=== PATIENT | female | born 1965 | race African-American/Black ===

== ENCOUNTER 2019-09-22 14:09 | Outpatient (CLI) | payer BC, SELFPAY ==
[2019-09-22 15:43] LABS: Blood Urea Nitrogen 10 mg/dL (7-17); Calcium 9.4 mg/dL (8.4-10.2); Carbon Dioxide 31 mmol/L (22-30); Chloride 103 mmol/L (98-107); Cholesterol 205 mg/dL (0-200); Estimated Glomerular Filt Rate > 60; Glucose 84 mg/dL (65-105); HDL Direct 69 mg/dL; Potassium 3.8 mmol/L (3.4-5.0); Sodium 138 mmol/L (137-145); Triglycerides 74 mg/dL (<150)
[2019-09-22 15:54] LABS: LDL Cholesterol Direct 97 mg/dL
== END 2019-09-22 14:10 | disposition home or self-care (01) ==
PROVIDERS: PCP Internal Medicine; Visit Provider Internal Medicine
DX: Z13.6 Encounter for screening for cardiovascular disorders (principal); Z13.220 Encounter for screening for lipoid disorders
CPT/HCPCS: 36415; 80048; 80061

== ENCOUNTER 2019-12-14 08:15 | Outpatient (CLI) | payer BC, SELFPAY ==
--- NOTE | ~2019-12-14 | MM_ITS ---
EXAMINATION: MM screening [facility] BI w elsie HISTORY: Screening TECHNIQUE: Craniocaudal and mediolateral oblique 3-D tomosynthesis images were obtained and synthetic 2-D images were generated. CAD analysis was submitted and interpreted. COMPARISON: Comparison to multiple prior studies sequentially, with oldest reviewed study dated 10/25. BREAST PARENCHYMAL COMPOSITION: The breasts are heterogeneously dense, which may obscure small masses . FINDINGS: There is no evidence of suspicious mass, calcification, or architectural distortion to sugg est malignancy in either breast. There has been no suspicious interval change. IMPRESSION: 1. No mammographic evidence of malignancy. 2. Recommend routine screening mammography in one year. BI-RADS Category 1: Negative Reviewed, dictated and finalized at location A.
== END 2019-12-14 08:16 | disposition home or self-care (01) ==
PROVIDERS: PCP Internal Medicine; Visit Provider Nurse Practitioner
DX: Z12.31 Encounter for screening mammogram for malignant neoplasm of breast (principal)
CPT/HCPCS: 77063; 77067

== ENCOUNTER 2020-04-13 11:21 | Outpatient (CLI) | payer BC, SELFPAY ==
[2020-04-13 11:58] LABS: Anion Gap 6 mmol/L (8-16); Blood Urea Nitrogen 12 mg/dL (7-17); Calcium 8.8 mg/dL (8.4-10.2); Carbon Dioxide 28 mmol/L (22-30); Chloride 107 mmol/L (98-107); Cholesterol 147 mg/dL (0-200); Estimated Glomerular Filt Rate > 60; Glucose 84 mg/dL (65-105); HDL Direct 58 mg/dL; Potassium 3.9 mmol/L (3.4-5.0); Sodium 141 mmol/L (137-145); Triglycerides 63 mg/dL (<150)
[2020-04-13 12:08] LABS: LDL Cholesterol Direct 63 mg/dL
== END 2020-04-13 11:22 | disposition home or self-care (01) ==
LOC: ANHLAB 11:22
PROVIDERS: PCP Internal Medicine; Visit Provider Nurse Practitioner
DX: Z13.6 Encounter for screening for cardiovascular disorders (principal); E78.5 Hyperlipidemia, unspecified
CPT/HCPCS: 36415; 80048; 80061

== ENCOUNTER 2020-04-23 09:36 | Outpatient (CLI) | payer BC, SELFPAY ==
[2020-04-23 10:41] LABS: Iron 88 ug/dL (37-170)
[2020-04-23 10:52] LABS: Percent Iron Saturation 33 % (20-50)
== END 2020-04-23 09:37 | disposition home or self-care (01) ==
PROVIDERS: PCP Internal Medicine; Visit Provider Internal Medicine
DX: G25.81 Restless legs syndrome (principal)
CPT/HCPCS: 36415; 82728; 83540; 83550

== ENCOUNTER 2020-12-17 09:46 | Outpatient (CLI) | payer BC, SELFPAY ==
--- NOTE | ~2020-12-17 | MM_ITS ---
EXAMINATION: MM screening [facility] BI w elsie HISTORY: Screening mammogram TECHNIQUE: Craniocaudal and mediolateral oblique 3-D tomosynthesis images were obtained and synthetic 2-D images were generated. CAD analysis was submitted and interpreted. COMPARISON: 12/14/2019, 12/11/2018, 12/05/2017 BREAST PARENCHYMAL COMPOSITION: There are scattered areas of fibroglandular density. FINDINGS: There is no evidence of suspicious mass, calcification, or architectural distortion to sugg est malignancy in either breast. There has been no suspicious interval change. IMPRESSION: 1. No mammographic evidence of malignancy. 2. Recommend routine screening mammography in one year. BI-RADS Category 1: Negative Reviewed, dictated and finalized at location A.
== END 2020-12-17 09:47 | disposition home or self-care (01) ==
LOC: ANHIMG 09:49
PROVIDERS: PCP Internal Medicine; Visit Provider Nurse Practitioner
DX: Z12.31 Encounter for screening mammogram for malignant neoplasm of breast (principal)
CPT/HCPCS: 77063; 77067

== ENCOUNTER 2021-05-18 12:09 | Outpatient (CLI) | payer BC, SELFPAY ==
[2021-05-18 13:32] LABS: Thyroid Stimulating Hormone 0.069 uIU/mL (0.465-4.680)
[2021-05-22 13:51] LABS: Red Blood Cell Folate 567 ng/mL RBC (>280)
== END 2021-05-18 12:10 | disposition home or self-care (01) ==
PROVIDERS: PCP Internal Medicine; Visit Provider Internal Medicine
DX: R20.2 Paresthesia of skin (principal)
CPT/HCPCS: 36415; 82607; 82747; 84443

== ENCOUNTER 2021-05-22 17:54 | Outpatient (CLI) | payer BC, SELFPAY ==
[2021-05-22 18:58] LABS: Thyroid Stimulating Hormone 0.772 uIU/mL (0.465-4.680); Total Triiodothyronine (T3) 1.19 NG/ML (0.97-1.69)
[2021-05-22 19:08] LABS: Free T4 Free Thyroxine 0.84 ng/mL (0.78-2.19)
== END 2021-05-22 17:55 | disposition home or self-care (01) ==
LOC: ANHLAB 17:55
PROVIDERS: PCP Internal Medicine; Visit Provider Internal Medicine
DX: R79.89 Other specified abnormal findings of blood chemistry (principal)
CPT/HCPCS: 36415; 84439; 84443; 84480

== ENCOUNTER 2021-06-03 09:39 | Outpatient (CLI) | payer BC, SELFPAY ==
--- NOTE | ~2021-06-03 | US_ITS ---
EXAMINATION: US thyroid DATE: 06/03/2021 10:09 INDICATION: Nontoxic single thyroid nodule. TECHNIQUE: Multiple ultrasound images of the thyroid were obtained. COMPARISON: None. FINDINGS: The right thyroid lobe measures 4.3 x 1.2 x 1.4 cm. The left thyroid lobe measures 4.0 x 0.9 x 1.5 c m. In the right thyroid lobe, there is a 7 mm solid, hypoechoic, [id number] nodule with ill-def ined margin without echogenic foci (TI-RADS TR4). IMPRESSION: 1. Small thyroid nodule, likely not clinically significant. No follow-up is needed. Reviewed, dictated and finalized at location A. DETAILER IMPRESSION: 1. Small thyroid nodule, likely not clinically significant. No follow-up is nee ded.
--- NOTE | ~2021-06-03 | XR_ITS ---
EXAMINATION: XR UGI w barium swallow DATE: 06/03/2021 10:21 INDICATION: Dysphagia with feeling of a lump in her throat. TECHNIQUE: The patient drank thick barium, gas-producing crystals, and thin barium. Fluoroscopy of th e esophagus, stomach, and proximal small bowel was performed. Fluoroscopy exposure time was 0.5 minut es. The total number of images was 239. Total dose-area product was 0.825 Gy-cm^2. COMPARISON: None. FINDINGS: There is no mass or stricture of the esophagus. Esophageal motility is normal. There is no hiatal hernia. There was no gastroesophageal reflux with provocative maneuvers. The stomach and proxi mal small bowel show normal folding patterns. IMPRESSION: 1. Normal upper gastrointestinal series and esophagram. Reviewed, dictated and finalized at location A. BUILDER
== END 2021-06-03 09:40 | disposition home or self-care (01) ==
LOC: ANHIMG 09:40
PROVIDERS: PCP Internal Medicine; Visit Provider Internal Medicine
DX: E04.1 Nontoxic single thyroid nodule (principal); R91.8 Other nonspecific abnormal finding of lung field
CPT/HCPCS: 74240; 76536

== ENCOUNTER 2022-01-27 08:25 | Outpatient (CLI) | payer OTHER, SELFPAY ==
--- NOTE | ~2022-01-27 | MM_ITS ---
EXAMINATION: MM screening jed BI w elsie HISTORY: Screening mammogram TECHNIQUE: Craniocaudal and mediolateral oblique 3-D tomosynthesis images were obtained and synthetic 2-D images were generated. CAD analysis was submitted and interpreted. COMPARISON: No prior mammogram is available for comparison at this institution. BREAST PARENCHYMAL COMPOSITION: There are scattered areas of fibroglandular density. FINDINGS: There is no evidence of suspicious mass, calcification, or architectural distortion to sugg est malignancy in either breast. There has been no suspicious interval change. IMPRESSION: 1. No mammographic evidence of malignancy. 2. Recommend routine screening mammography in one year. BI-RADS Category 1: Negative Reviewed, dictated and finalized at location A.
== END 2022-01-27 08:26 | disposition home or self-care (01) ==
LOC: ANHIMG 08:28
PROVIDERS: PCP Internal Medicine; Visit Provider Internal Medicine
DX: Z12.31 Encounter for screening mammogram for malignant neoplasm of breast (principal)
CPT/HCPCS: 77063; 77067

== ENCOUNTER 2022-11-10 11:07 | Outpatient (CLI) | payer OTHER, SELFPAY ==
[2022-11-10 12:25] LABS: Alanine Aminotransferase 20 U/L (6-35); Albumin Level 3.9 g/dL (3.5-5.1); Alkaline Phosphatase 49 U/L (38-126); Anion Gap 3 mmol/L (8-16); Aspartate Amino Transferase 29 U/L (14-36); Bilirubin,Total 0.6 mg/dL (0.2-1.3); Blood Urea Nitrogen 13 mg/dL (7-17); Calcium 8.6 mg/dL (8.4-10.2); Carbon Dioxide 28 mmol/L (22-30); Chloride 104 mmol/L (98-107); Cholesterol 180 mg/dL (0-200); Estimated Glomerular Filt Rate > 60; Glucose 85 mg/dL (65-110); HDL Direct 61 mg/dL; Potassium 3.9 mmol/L (3.4-5.0); Sodium 135 mmol/L (137-145); Triglycerides 83 mg/dL (<150)
[2022-11-10 12:35] LABS: LDL Cholesterol Direct 80 mg/dL
[2022-11-10 12:39] LABS: Basophils Absolute Auto 0.1 K/mm3 (0.0-0.1); Eosinophils Absolute Auto 0.1 K/mm3 (0-0.3); Eosinophils Percent Auto 2.3 % (0-4.4); Hematocrit 37.7 % (37.0-47.0); Hemoglobin 12.2 g/dL (12.0-15.0); Immature Granulocyte Absolute 0.01 K/mm3 (0.00-0.031); Immature Granulocyte Percent A 0.2 % (0-0.5); Lymphocytes Absolute Auto 1.89 K/mm3 (0.9-3.2); Lymphocytes Percent Auto 36.5 % (18.3-44.2); Mean Corpuscular HGB Conc 32.4 g/dl (32-36); Mean Corpuscular Hemoglobin 26.2 pg (26-34); Mean Corpuscular Volume 81.1 fl (80-100); Mean Platelet Volume 11.5 fl (7.4-10.4); Monocytes Absolute Auto 0.5 K/mm3 (0.1-0.6); Monocytes Percent Auto 9.3 % (2.6-8.5); Neutrophils Absolute Auto 2.6 K/mm3 (1.3-6.7); Neutrophils Percent Auto 50.7 % (45.5-73.1); Platelet Count Result 224 k/mm3 (150-375); Red Blood Count 4.65 M/mm3 (4.2-5.4); Red Cell Distribution Width 14.2 % (11.5-14.5); White Blood Count 5.2 K/mm3 (4.5-10.0)
[2022-11-10 12:52] LABS: Thyroid Stimulating Hormone 0.272 uIU/mL (0.465-4.680)
== END 2022-11-10 11:08 | disposition home or self-care (01) ==
LOC: ANHLAB 11:09
PROVIDERS: PCP Family Medicine; Visit Provider Family Medicine
DX: Z00.00 Encounter for general adult medical examination without abnormal findings (principal); F41.9 Anxiety disorder, unspecified; G25.81 Restless legs syndrome; G43.909 Migraine, unspecified, not intractable, without status migrainosus; K21.9 Gastro-esophageal reflux disease without esophagitis; R20.2 Paresthesia of skin; R79.89 Other specified abnormal findings of blood chemistry
CPT/HCPCS: 36415; 80053; 80061; 84443; 85025

== ENCOUNTER 2023-01-30 13:41 | Outpatient (CLI) | payer OTHER, SELFPAY ==
--- NOTE | ~2023-01-30 | MM_ITS ---
EXAMINATION: MM screening [facility] BI w elsie HISTORY: Screening mammogram TECHNIQUE: Craniocaudal and mediolateral oblique 3-D tomosynthesis images were obtained and synthetic 2-D images were generated. CAD analysis was submitted and interpreted. COMPARISON: 01/27/2022, 12/17/2020, 12/14/2019 bilateral screening mammogram examinations BREAST PARENCHYMAL COMPOSITION: There are scattered areas of fibroglandular density. FINDINGS: There is no evidence of suspicious mass, calcification, or architectural distortion to sugg est malignancy in either breast. There has been no suspicious interval change. IMPRESSION: 1. No mammographic evidence of malignancy. 2. Recommend routine screening mammography in one year. BI-RADS Category 1: Negative Reviewed, dictated and finalized at location A.
== END 2023-01-30 13:42 | disposition home or self-care (01) ==
LOC: CHSIMG 13:42
PROVIDERS: PCP Family Medicine; Visit Provider Family Medicine
DX: Z12.31 Encounter for screening mammogram for malignant neoplasm of breast (principal)
CPT/HCPCS: 77063; 77067

== ENCOUNTER 2023-05-21 15:25 | Outpatient (CLI) | payer OTHER, SELFPAY ==
[2023-05-21 16:31] LABS: Alanine Aminotransferase 17 U/L (6-35); Albumin Level 4.1 g/dL (3.5-5.1); Alkaline Phosphatase 75 U/L (38-126); Anion Gap 5 mmol/L (8-16); Aspartate Amino Transferase 25 U/L (14-36); Bilirubin,Total 0.4 mg/dL (0.2-1.3); Blood Urea Nitrogen 13 mg/dL (7-17); Calcium 8.7 mg/dL (8.4-10.2); Carbon Dioxide 27 mmol/L (22-30); Chloride 108 mmol/L (98-107); Cholesterol 167 mg/dL (0-200); Estimated Glomerular Filt Rate > 60; Glucose 84 mg/dL (65-110); HDL Direct 62 mg/dL; Sodium 140 mmol/L (137-145); Triglycerides 134 mg/dL (<150)
[2023-05-21 16:42] LABS: LDL Cholesterol Direct 79 mg/dL
[2023-05-21 17:02] LABS: Thyroid Stimulating Hormone 0.146 uIU/mL (0.465-4.680)
[2023-05-21 19:32] LABS: Free T4 Free Thyroxine 0.95 ng/mL (0.78-2.19)
== END 2023-05-21 15:26 | disposition home or self-care (01) ==
LOC: ANHLAB 15:26
PROVIDERS: PCP Family Medicine; Visit Provider Nurse Practitioner Family
DX: E05.90 Thyrotoxicosis, unspecified without thyrotoxic crisis or storm (principal); Z13.228 Encounter for screening for other metabolic disorders; Z13.220 Encounter for screening for lipoid disorders
CPT/HCPCS: 36415; 80053; 80061; 84439; 84443

== ENCOUNTER 2023-06-11 16:16 | Outpatient (CLI) | payer OTHER, SELFPAY ==
[2023-06-11 17:53] LABS: Free T4 Free Thyroxine 1.12 ng/mL (0.78-2.19)
== END 2023-06-11 16:17 | disposition home or self-care (01) ==
LOC: ANHLAB 16:18
PROVIDERS: PCP Family Medicine; Visit Provider Nurse Practitioner
DX: R79.89 Other specified abnormal findings of blood chemistry (principal)
CPT/HCPCS: 36415; 84439

== ENCOUNTER 2023-06-15 12:47 | Outpatient (CLI) | payer OTHER, SELFPAY | END 2023-06-15 12:48 | disposition home or self-care (01) | LOC: ANHLAB 12:48 | PROVIDERS: PCP Family Medicine; Visit Provider Nurse Practitioner | DX: R79.89 Other specified abnormal findings of blood chemistry (principal) | CPT/HCPCS: 36415; 84443 ==

== ENCOUNTER 2024-03-02 09:05 | Outpatient (CLI) | payer OTHER, SELFPAY ==
--- NOTE | ~2024-03-02 | MM_ITS ---
EXAMINATION: MM screening [facility] BI w elsie HISTORY: Screening mammogram TECHNIQUE: Craniocaudal and mediolateral oblique 3-D tomosynthesis images were obtained and synthetic 2-D images were generated. CAD analysis was submitted and interpreted. COMPARISON: 01/30/2023, 01/27/2022, 12/17/2020 BREAST PARENCHYMAL COMPOSITION:Not Dense. There are scattered areas of fibroglandular density. FINDINGS: No suspicious mass, calcification, or architectural distortion are identified in either angelia ast to suggest malignancy. There has been no suspicious interval change. IMPRESSION: No mammographic evidence of malignancy. Recommend routine screening mammography in one year. BI-RADS Category 1: Negative Reviewed, dictated and finalized at location .
== END 2024-03-02 09:06 | disposition home or self-care (01) ==
PROVIDERS: PCP Family Medicine; Visit Provider Nurse Practitioner
DX: Z12.31 Encounter for screening mammogram for malignant neoplasm of breast (principal)
CPT/HCPCS: 77063; 77067

== ENCOUNTER 2024-07-26 13:48 | Outpatient (CLI) | payer BC, SELFPAY ==
[2024-07-26 14:54] LABS: Alanine Aminotransferase 21 U/L (6-35); Albumin Level 4.3 g/dL (3.5-5.1); Alkaline Phosphatase 74 U/L (38-126); Anion Gap 7 mmol/L (4-12); Aspartate Amino Transferase 25 U/L (14-36); Bilirubin,Total 0.4 mg/dL (0.2-1.3); Blood Urea Nitrogen 7 mg/dL (7-17); CRP < 0.5 mg/dL (<1.0); Calcium 9.3 mg/dL (8.4-10.2); Carbon Dioxide 28 mmol/L (22-30); Chloride 105 mmol/L (98-107); Cholesterol 161 mg/dL (0-200); Estimated Glomerular Filt Rate > 60; Glucose 92 mg/dL (65-110); HDL Direct 55 mg/dL; Sodium 140 mmol/L (137-145); Triglycerides 96 mg/dL (<150)
[2024-07-26 15:52] LABS: Erythrocyte Sedimentation Rate 1 mm/hr (0-20)
[2024-07-26 15:58] LABS: Rheumatoid Factor < 12.0 IU/ML (<12)
[2024-07-26 16:04] LABS: LDL Cholesterol Direct 73 mg/dL
--- OUTSIDE RECORDS SUMMARY | 2024-07-26 16:07 | XMS_ITS | Data Portability ---
Author Organization [facility] , [facility] Address [address] [place] [address] Assessment No assessment recorded. Plan of Treatment Reminders Order Date Submit Date Provider Last Modified By Organization Details Last Modified Time Details Appointments None recorded. Lab None recorded. Referral None recorded. Procedures None recorded. Surgeries None recorded. Imaging None recorded. Medication Orders estradiol 0.025 mg/24 hr semiweekly transdermal patch 2024 025 [id number], [address], [place], [phone], 5 00:15:40 Climara 0.025 mg/24 hr transdermal patch 2022 023 [email or web address] [id number], [address], [place], [phone], 5 12:54:32 estradiol 1 mg tablet 2021 022 [email or web address] [facility] #[id number], [address], [place], [id number], 3 13:01:41 Patient TargetsNo targets recorded. Patient Instructions Encounter Date Encounter Id Patient Instructions Last Modified By Organization Details Last Modified Time 10/24/2022 [id number] Patient Health Questionnaire-9* [email or web address] Not available 10/27/2022 12:42:04 abuse/domestic violence education Not available 10/24/2022 13:01:15 eating healthy foods: care instructions Not available 10/24/2022 13:01:15 general health care education Not available 10/24/2022 13:01:15 weight managemen t education Not available 10/24/2022 13:01:15 Reason for Referral None Reported. Problems Name Problem SNOMED Code Status Onset Date Resolution Date Notes Provider Name and Address Organization Details Recorded Time Sampling of vagina for Papanicol aou smear Active 2020 Encounter for gynecologi cindy examinatio n (general) (routine) without abnormal findings; Progress: Stable Added By: Silva Hernandez Add to Current Problems: YES ProblemSta tus: Current Not Available [facility] 21:03:00 Menopause present [id number] Active 2020 Menopausal and female climacteri c states; Progress: Stable Added By: Nicolle Brown Add to Current Problems: YES ProblemSta tus: Current Not Available [facility] 19:57:36 Problem Notes None recorded. Procedures Surgical History Date Name Laterality Status Provider Name and Address Organization Details Recorded Time 03/18/20 24 Most Recent Mammogram completed Kinza Harden [employer] [facility] 06/10/2024 16:41:17 05/04/19 18 Date of Last Colonoscopy completed Alesia Simpson [facility] 01/11/2024 17:22:50 10/03/19 11 Date of Last Pap Smear completed SANDRA MENDEZ NP [address] [facility], [place], [address], [employer] [facility] 01/11/2024 18:01:28 hysterectomy completed Sandhya Edwardtrusiak [facility] 08/12/2021 08:49:35 oophorectomy completed Sandhya [facility] 08/12/2021 08:49:49 Vaginal hysterectomy completed Silvia Patton [facility] 10/24/2022 12:32:52 Diagnostic colonoscopy completed Kinza Harden [employer] [facility] 06/10/2024 16:41:42 Imaging Results None recorded. Procedure Notes None recorded. Medical Equipment None Reported. Allergies Allergen ID Allergen Name Allergen Category Reaction Reaction Severity Criticality Documentation Date Start Date Code Code System Note Provider Name and Address Organization Details Recorded Time 068306 amoxicill in medicatio n Not available Not available Not available 10/24/2022 723 RxNorm Not Available Not Available Not Available Medications Name Sig Start Date Stop Date Status Note LastModified by Organization Details LastModified Time amoxicill in 500 mg capsule 10/24 completed Not Available Not Available Not Available trazodone 50 mg tablet TAKE 1 TABLET BY MOUTH EVERY DAY AT BEDTIME NEEDED FOR INSOMNIA active Not Available Not Available No t Available estradiol 0.025 mg/24 hr weekly transderm al patch APPLY 1 PATCH TOPICALL Y TO THE SKIN EVERY WEEK 05/19 completed Not Available Not Available Not Available estradiol 1 mg tablet TAKE 1 TABLET(1 MG) BY MOUTH EVERY DAY 10/24 completed Not Available Not Available Not Available omeprazol e 20 mg capsule,d elayed release TAKE 1 CAPSULE BY MOUTH DAILY active Not Available Not Available No t Available estradiol 0.025 mg/24 hr semiweekl y transderm al patch Apply 1 patch twice a week by transder mal route for 90 days. 2024 active Not Available Not Available Not Avai lable sumatript an 08/12 completed SUMAtrip strong RxNorm: 00124 Allow Substitu tion: False Refill Denied: No Refill DateOccu rred: 10/17/19 Edited by: Silva Justice ) on 10/17/19 21 Stopped by: Silva Justice ) on Not Available Not Available Not Available estradiol 08/12 completed estradio L RxNorm: 3098048 Allow Substitu tion: False Refill Denied: No Refill DateOccu rred: 10/17/19 21 Edited by: dionte carmona(Nicolle Kenney ) on 10/17/19 Stopped by: dionte cramona(Nicolle Kenney ) on Not Available Not Available Not Available biotin active Not Available Not Availa ble Not Available Vitamin D active Not Available Not Madalyn ilable Not Available B12 active Not Available Not Availa ble Not Available Probiotic active Not Available Not Madalyn ilable Not Available Vitals Date Recorded Body height Body mass index (BMI) Body weight Body temperature Systolic blood pressure Diastolic blood pressure Provider Name and Address Organization Details Last Updated DateTime 2 165.1 cm 24.8 kg/m2 31673.2 6 g 97.3 [degF] 110 mm[Hg] 68 mm[Hg] Jennifertom ArreguinAnibal [facility] 2 17:10:47 Date Recorded Body height Body mass index (BMI) Body weight Body temperature Systolic blood pressure Diastolic blood pressure Provider Name and Address Organization Details Last Updated DateTime 3 165.1 cm 23.7 kg/m2 34618.8 4 g 97 [degF] 112 mm[Hg] 80 mm[Hg] Silvia Patton [facility] 3 12:37:52 Date Recorded Body height Body mass index (BMI) Body weight Body temperature Systolic blood pressure Diastolic blood pressure Provider Name and Address Organization Details Last Updated DateTime 4 165.1 cm 23.7 kg/m2 01784.8 4 g 97.3 [degF] 130 mm[Hg] 82 mm[Hg] Alesia Simpson [facility] 4 17:27:10 Date Recorded Body height Body mass index (BMI) Body weight Systolic blood pressure Diastolic blood pressure Provider Name and Address Organization Details Last Updated DateTime 06/10/2024 165.1 cm 25.5 kg/m2 14700.07 g 130 mm[Hg] 88 mm[Hg] Kinza Correaa [facility] 5 16:44:39 Social History Question Answer Notes LastModified by Organizat ion Details LastModified Time Tobacco Smoking Status Never Smoker Jennifer Barnett [facility] 08/12/2021 17:07:44 What Is Your Level Of Alcohol Consumption? None Information not available 08/12/2021 Are You Blind Or Do You Have Difficulty Seeing? No Information not available 08/12/2021 Are You Currently Employed? Yes [email or web address] Information not available 01/11/2024 Are You Deaf Or Do You Have Serious Difficulty Hearing? No Information not available 08/12/2021 What Type Of Diet Are You Following? REGULAR Information not available 08/12/2021 Do You Or Have You Ever Used E-cigarettes Or Vape? Never Used Electronic Cigarettes [email or web address] Information not available 10/24/2022 How Many Children Do You Have? 2 Information not available 08/12/2021 Are There Any Occupational Health Risks Where You Work? No [email or web address] Information not available 01/11/2024 What Is Your Relationship Status? Single Information not available 08/12/2021 Are You Sexually Active? No [email or web address] Information not available 01/11/2024 Do You Use Any Illicit Or Recreational Drugs? No Information not available 08/12/2021 Do You Or Have You Ever Used Any Other Forms Of Tobacco Or Nicotine? No Information not available 08/12/2021 Sex: Unknown Functional Status Question Answer Note LastModified by Organizat ion Details LastModified Time What is your exercise level? Occasional Information not available 06/10/2024 Mental Status None recorded. Family History Relationship Description Onset Age of this Age Resolved Age Notes LastModified by Organization Details LastModified Time Maternal Grandmother Malignant tumor of lung [email or web address] Not available 2024 16:36:38 Maternal Grandmother Hypertensive disorder Not available 2022 12:32:37 Unspecified Relation Heart disease Not available 2022 12:32:37 Paternal Grandmother Hypertensive disorder [email or web address] Not available 2022 12:32:37 Paternal Grandmother Malignant tumor of lung [email or web address] Not available 2024 16:36:38 Mother Hypercholest erolemia [email or web address] Not available 2022 12:32:37 Mother Hypertensive disorder [email or web address] Not available 2022 12:32:37 Mother Hypothyroidi sm [email or web address] Not available 2022 12:32:37 Mother Uterine leiomyoma [email or web address] Not available 2022 12:32:37 Father Hypercholest erolemia [email or web address] Not available 2022 12:32:37 Father Hypertensive disorder [email or web address] Not available 2022 12:32:37 Father Heart disease [email or web address] Not available 2022 12:32:37 Medical History Condition Response Other Cancer N High Blood Pressure N Colon Cancer N Cytomegalovirus N Hyperthyroidism N Herpes (HSV) N Breast Cancer N Blood Transfusion N MRSA N Lung Cancer N Hypothyroidism N Depression N Incontinence N Panic Attacks N Neurological Disorder N Deep Vein Thrombosis N Anxiety Disorder N Autoimmune disease N Arthritis N Tuberculosis/Positive PPD N Shingles N Polycystic Ovarian Syndrome N Infertility N Cervical Cancer N Chlamydia N Hematuria N Stroke N Varicosities N Crohn's Disease N Seasonal allergies N Alzheimer's/Dementia N COPD/Emphysema N HPV/Genital Warts N Endometriosis N IBS (Irritable Bowel Syndrome) N History of Abnormal Pap N High Cholesterol N Liver Disease N Kidney Infection N Fibromyalgia N Ulcer N Kidney Disease N HIV N Gallbladder disease N Sickle Cell Disease/Trait N Von Willebrand disease N ADD/ADHD N Eating Disorder N Anemia N Diabetes Mellitus (non-insulin dependent ) N Ovarian Problems N Multiple Sclerosis N Gonorrhea N Frequent Urinary Tract infections N Osteopenia N Headaches/migraines Y GERD (reflux) Y Ovarian Cancer N Diabetes (insulin dependent) N Seizures/Epilepsy N Breast Problems N Fibroids N Heart Attack N Asthma N Lupus N Endometrial Cancer N Rubella N Blood Clotting Disorder N Bipolar Disorder N Diabetes Mellitus (during ) N Ulcerative Colitis N Hepatitis N Heart Disease N Pulmonary Embolism N RPR N Chicken Pox N Osteoporosis N Gynecological History Statement/Question Response Date of Last Colonoscopy 05/04/2017 Date of LMP Date of Last Pap Smear 10/02/2010 Most Recent Mammogram 03/18/2024 Current Control Method Hysterectom y Age at Menarche 14 Obstetrics History GPAL:G 2 P 2 0 0 2 Type Value Full Term 2 Living 2 Total 2 Past Encounters Encounter ID Performer Location Encounter Start Date Encounter Closed Date Diagnosis/Indication Diagnosis SNOMED-CT Code Diagnosis ICD10 Code Diagnosis Note [id number] Armani Stacy, DO [facility] [address] [place] [address] 08/12/2021 16:44:04 08/13/2021 10:41:58 Menopausal symptom 63147279 E89.41 estrad [id number] RAD JULIAN, DO [facility] [address] [place] [address] 10/24/2022 12:11:32 10/24/2022 17:25:05 Gynecologic examination 29729058 Z01.419 57 y.o. here for annual exam.- Pap not indicated due to h/o hysterecto my- Routine labs done with PCP- Mammo last year WNL, scheduled for December 2022- Colonoscop y done in 2018 WNL, can continue q10 years screens- DEXA at age 67- Depression screen NEG- RTO for annual or PRN Depression screening 171 397418 Z13.31 Menopausal symptom 68185 002 N95.1 switched from oral Estradiol to patch [id number] SANDRA MENDEZSALLY [facility] [address] [place] [address] 01/11/2024 16:58:17 01/12/2024 15:13:08 Menopause finding 298279225 N95.1 -Reviewed vast array of perimenopa usal symptoms including but not limited to vasomotor symptoms, irregular cycles, hair loss, weight gain, mood swings, brain fog, increase in depression symptoms, etc.-Revie wed treatment options including non-hormon al and hormonal options.-D iscussed vaginal dryness and trying natural lubricants , increasing foreplay to help, if no change can use estrogen cream. Patient identified triggers for anxiety and impact of anxiety and anxious thinking on functionin g. Discussed strategies to regulate symptoms and compliance with treatment. Vaginal dryness 40439015 N95.1 Discussed vaginal estrogen, DHEA supplement ation. Will plan to use lubricant (rec coconut oil, astroglide or slippery stuff). Vaginal Dryness handout given to patient. Depression screening 171 043917 Z13.31 [id number] SANDRAMIREYA MENDEZ NP [facility] [address] [place] [address] 06/10/2024 16:34:03 06/13/2024 15:28:38 Menopausal symptom 76268514 N95.1 -Reviewed vast array of perimenopa usal symptoms including but not limited to vasomotor symptoms, irregular cycles, hair loss, weight gain, mood swings, brain fog, increase in depression symptoms, etc.-Revie wed treatment options including non-hormon al and hormonal options.-D iscussed vaginal dryness and trying natural lubricants , increasing foreplay to help, if no change can use estrogen cream. Patient identified triggers for anxiety and impact of anxiety and anxious thinking on functionin g. Discussed strategies to regulate symptoms and compliance with treatment. Breast tenderness 467219 07 N64.4 Patient with reported tenderness in bilateral axilla area. patient reports that she was wearing an underwire bra for awhile as well as very active. No nodules were palpated and patient reports that the tenderness improved once she changed to wire free bras.Pt educated on breast cancer screening guidelines , and discussed recommenda tion for scheduling imaging at hospital of her choice. Reviewed recommenda tion to have imaging done at same facility if possible as previous screenings . Pt states understand ing of POC. Health Concerns Section Related Observation LastModified by Organization Detai ls LastModified Time None Recorded Concern Status LastModified by Organization Details LastModified Time None Recorded Advance Directives Directive None Recorded Payers Encounter Date Sequence Insurance Name Policy Number Policy Delgado Covered Member ID Delgado Member ID Guarantor Name 08/12/2021 1 [employer] [id number] Marcin B Javier [id number] Marcin Javier 10/24/2022 1 [employer] [id number] Marcin B Javier [id number] Marcin Javier 01/11/2024 1 [employer] [id number] Marcin B Javier [id number] Marcin Javier 06/10/2024 1 [place] [id number] Marcin Javier [id number] Marcin Javier Notes Date Note Type Note Provider Name and Address Organization Details Recorded Time 08/12/2021 text/html Pt is here to f/ u on estradiol Nicolle prescribed to her in October of 2020 for hot flashes. Pt says she is satisfied with the medication. Armani Stacy, [address] [place] [address], [phone], [facility] 08/12/2021 17:25:24 10/24/2022 text/html Annual GYNReport ed bypatient.Menstrua l cycle:postmenopaus al Urinary symptoms:No hematuria; No incontinence Vulva:No genital lesion Vagina:Normal vaginal discharge Breast:No breast pain; No breast lump; No nipple discharge Sexual complaints:No sexual complaints; No pain during intercourse; Normal libido Menopausal Symptoms:Normal vaginal lubrication;Hot flashes Psychological symptoms:No depression; No anxiety; No PMDD RAD JULIAN, [facility] [place], [address], [facility] 10/24/2022 13:02:15 01/11/2024 text/html Annual GYNReport ed bypatient.Menstrua l cycle:Normal menses Urinary symptoms:No hematuria; No incontinence Vulva:No genital lesion Vagina:Normal vaginal discharge Breast:No breast pain; No breast lump; No nipple discharge Sexual complaints:No sexual complaints; No pain during intercourse; Normal libido Menopausal Symptoms:No menopausal symptoms; Normal vaginal lubrication Psychological symptoms:No depression; No anxiety; No PMDD Marcin is here today She wants to discuss her anxiety level. She'd like to discuss if it could have something to do with the menopause. She has no other concerns at this time. SANDRA MENDEZ NP [address] [facility], [place], [address], [facility] 01/11/2024 18:05:52 06/10/2024 text/html Marcin is a 59 year old woman. Pt is here for medication refill. Pt stated that she needs more of the transdermal patches. SANDRA MENDEZ NP [address] [place], [address], [facility] 06/10/2024 17:09:10 OBGyn Episode Ob Episode Information Episode Created Date Number of Fetuses Patient Bloodtype Patient rh Status Prepregnancy Weight lbs Domestic Partner Domestic Partner Phone Father Name Front Office Developer Status 10/25/19 23 1 CLOSED Fetus Data First Name Last Name Admitted to NICU Weight (g) Sex Living Outcome Pediatric Complications Fetus ID Race Codes Race Delivery Type 3401.94 M Full Term [id number] Tashi Calculation Initial Tashi Date Initial Exam Date Initial Exam Provider Initial Ultrasound Date Last Menstrual Period Date Ultra Sound Weeks Gestation 0 Eighteen To Twenty Week Tashi Update Ultra Sound Date Fundal Height At Umbil Quickening Date Ultra Sound Latest Weeks Gestation Final Tashi Confirmed By Final Tashi Confirmed Date Final Tashi Date Ultra Sound Latest Days Gestation 0 0 Menstrual History Last Menstrual Date Menses Monthly On Bcp Conception Prior Menses Frequency Hcg Plus Date Menarche Onset Age Delivery Information Delivery Date Delivery Type Labor Anesthesia Weeks Gestation Incision Type Labor Labor Length Hrs Delivered By Post Complications Tubal Sterilization Discharge Date Comments 5 [facility] idural 40 Discharge Information Feeding Method Contraceptive Method Maternal HG B and HCT Levels Ob Episode Information Episode Created Date Number of Fetuses Patient Bloodtype Patient rh Status Prepregnancy Weight lbs Domestic Partner Domestic Partner Phone Father Name Front Office Developer Status 10/25/19 23 1 CLOSED Fetus Data First Name Last Name Admitted to NICU Weight (g) Sex Living Outcome Pediatric Complications Fetus ID Race Codes Race Delivery Type 3572.03 7 M Full Term [id number] Tashi Calculation Initial Tashi Date Initial Exam Date Initial Exam Provider Initial Ultrasound Date Last Menstrual Period Date Ultra Sound Weeks Gestation 0 Eighteen To Twenty Week Tashi Update Ultra Sound Date Fundal Height At Umbil Quickening Date Ultra Sound Latest Weeks Gestation Final Tashi Confirmed By Final Tashi Confirmed Date Final Tashi Date Ultra Sound Latest Days Gestation 0 0 Menstrual History Last Menstrual Date Menses Monthly On Bcp Conception Prior Menses Frequency Hcg Plus Date Menarche Onset Age Delivery Information Delivery Date Delivery Type Labor Anesthesia Weeks Gestation Incision Type Labor Labor Length Hrs Delivered By Post Complications Tubal Sterilization Discharge Date Comments 8 [facility] idural 40 false Discharge Information Feeding Method Contraceptive Method Maternal HG B and HCT Levels
--- OUTSIDE RECORDS SUMMARY | 2024-07-26 16:07 | XMS_ITS | Clinical Summary ---
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 Gender Identity Not on file Sexual Orientation Not on file Plan of Treatment Health Maintenance Due Date Last Done Comments Hepatitis C Virus (HCV) Screening 1967 TdaP Immunization 1967 Hepatitis B Immunization (1 of 3 - 19+ 3-dose series) 1986 Pap Smear 1988 Cervical Cancer Screening (CCS) 1997 HPV/Cotest 1997 Colonoscopy 2012 Colorectal Cancer Screening 2012 Cologuard 2017 Immunochemical Fecal Occult Blood 2017 Mammogram 2017 Pneumococcal Immunization (5 0+ years) (1 of 1 - PCV) 2017 Zoster Immunization (1 of 2) 2017 Influenza Immunization (#1) 2024 SARS-COV-2 Immunization ( season) 2024 Respiratory Syncytial Virus (RSV) Immunization (Adult) (1 - 1-dose 75+ series) 2042 Meningococcal Immunization (ACWY) Aged Out No longer eligible based on patient's age to complete this topic Pneumococcal Immunization Combined Aged Out No longer eligible based on patient's age to complete this topic Rotavirus Immunization Aged Out No lo nger eligible based on patient's age to complete this topic
--- OUTSIDE RECORDS SUMMARY | 2024-07-26 16:07 | XMS_ITS | Data Portability ---
Author Organization [facility], [employer] Address [address] [place] [address] Assessment No assessment recorded. Plan of Treatment Reminders Order Date Submit Date Provider Last Modified By Organization Details Last Modified Time Details Appointments None recorded. Lab BMP, serum or plasma 2018 019 [email or web address] Not available 9 08:36:00 fecal occult blood, immunoassa y, stool 2018 019 [email or web address] Not available 9 15:58:22 Referral None recorded. Procedures None recorded. Surgeries None recorded. [facility] [address], [place], [address], 9 11:57:03 XR, chest, 2 view 2018 019 lcallison [facility]), [address], [address], [place], [address], 9 08:36:07 Medication Orders None recorded. Patient TargetsNo targets recorded. Patient Instructions Encounter Date Encounter Id Patient Instructions Last Modified By Organization Details Last Modified Time 06/24/2018 [id number] elevated blood pressure: care instructions Not available 06/24/2018 15:55:08 spirometry testing* LATONIA Not available 06/24/2018 16:13:43 Reason for Referral None Reported. Results Created Date Observation Date Name Description Value Unit Range Abnormal Flag Note LastModifiedBy Organization Detail LastModifiedTime 06/25/19 19 06/25/2018 elect rocar diogr am Rate & Rhythm Not Available [facility], [facility] [address], [place], [address], 06/24/2018 15:44:22 06/25/19 19 06/25/2018 elect rocar diogr am QRS Not Available [facility], [facility] [address], [place], [address], 06/24/2018 15:44:22 06/25/19 19 06/25/2018 elect rocar diogr am NV Interval Not Available [facility], [facility] [address], [place], [address], 06/24/2018 15:44:22 06/25/19 19 06/25/2018 elect rocar diogr am QRS Duration Not Available [facility], [facility] [address], [place], [address], 06/24/2018 15:44:22 06/25/19 19 06/25/2018 elect rocar diogr am QT Interval Not Available [facility], [facility] [address], [place], [address], 06/24/2018 15:44:22 06/25/19 19 06/25/2018 elect rocar diogr am Change from Previous EKG? Not Available [facility], [facility] [address], [place], [address], 06/24/2018 15:44:22 06/25/19 19 06/25/2018 elect rocar diogr am Date of Last EKG Not Available [facility], [facility] [address], [place], [address], 06/24/2018 15:44:22 06/25/19 19 06/25/2018 caio metry testi ng* Spirometry Not Available [facility], [facility] [address], [place], [address], 06/24/2018 15:43:05 06/24/19 19 caio glenis testi ng* No observ ation record ed. [email or web address] Not Available 2018 11:54:52 06/24/19 19 tere vincent am No observ ation record ed. jbuske Not Available 2018 11:53:01 Result Notes None recorded. Procedures Surgical History Date Name Laterality Status Provider Name and Address Organization Details Recorded Time 11/02/19 18 Date of Last Mammogram completed [facility] 06/24/2018 14:44:43 09/02/19 18 Date of Last Colonoscopy completed [facility] 06/24/2018 14:54:30 Commercial [employer] Surgery completed [facility] 06/24/2018 14:58:23 Orthopedic Surgery completed [facility] 06/24/2018 14:59:38 Orthopedic Surgery completed [facility] 06/24/2018 15:00:01 Partial Hysterectomy completed Noel Almeida MD [address], [place], [address], [facility] 06/24/2018 15:24:27 Tonsillectomy completed Noel Almeida MD [address], [place], [address], [facility] 06/24/2018 15:24:45 Imaging Results Imaging Date Name Status LastModified by Organization Details LastModified Time 06/24/2018 spirometry testing* completed Infor mation not available 06/25/2018 11:54:52 06/24/2018 electrocardiogram completed Informa tion not available 06/25/2018 11:53:01 Procedure Notes None recorded. Medical Equipment None Reported. Allergies No known drug allergies Medications Name Sig Start Date Stop Date Status Note LastModified by Organization Details LastModified Time sumatriptan 50 mg tablet active Not Available Not Available Not Available peg-electroly te solution 420 gram oral solution 2018 completed Not Available Not Available Not Available oxycodone-lit taminophen 5 mg-325 mg tablet 2018 completed Not Available Not Available Not Available ibuprofen 600 mg tablet 2018 completed Not Available Not Available Not Available Vitals Date Recorded Body height Body mass index (BMI) Body weight Respiratory rate Body temperature Heart rate Systolic blood pressure Diastolic blood pressure Provider Name and Address Organization Details Last Updated DateTime 9 165.1 cm 23 kg/m2 49464.7 5 g 16 /min 97.8 [degF] 76 /min 125 mm[Hg] 87 mm[Hg] Jagruti Estephania [facility] 9 15:01:46 Social History Question Answer Notes LastModified by [employer] Details LastModified Time Tobacco Smoking Status Never Smoker Jagruti Best [facility] 06/24/2018 14:47:58 Do You Have An Advance Directive? No Information not available 06/24/2018 What Is Your Level Of Alcohol Consumption? None Information not available 06/24/2018 What Is Your Level Of Caffeine Consumption? None Information not available 06/24/2018 How Much Tobacco Do You Chew? None Information not available 06/24/2018 What Is Your Code Status? Full Code Information not available 06/24/2018 What Type Of Diet Are You Following? REGULAR Information not available 06/24/2018 Which Illicit Or Recreational Drugs Have You Used? 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 06/24/2018 Information not available 11/24/2018 How Much Tobacco Do You Smoke? No Information not available 06/24/2018 General Stress Level Low Information not available 06/24/2018 Sex: Unknown Functional Status Question Answer Note LastModified by [employer] Details LastModified Time What is your exercise level? Moderate boot camp, & eliptical twice to 3x a week Information not available 06/24/2018 Mental Status None recorded. Family History Relationship Description Onset Age of this Age Resolved Age Notes LastModified by Organization Details LastModified Time Maternal Grandmother Diabetes mellitus [email or web address] Not available 2018 14:55:16 Maternal Grandmother Malignant tumor of lung Dx'd in her 80's (heavy smoker ) lcallison Not available 06/24/2018 14:56:58 Paternal Grandmother Heart disease Just knows she had heart surger y- unsure of what type or when. lcallison Not available 06/24/2018 14:56:03 Paternal Grandmother Neoplasm of stomach Dx'd in her 80's lcallison Not available 06/24/2018 14:56:34 Maternal Grandfather Family history of malignant neoplasm Dx'd in his 40's- unsure if it was lung cancer or throat cancer . He was a smoker lcallison Not available 06/24/2018 14:57:40 Maternal Uncle Diabetes mellitus Not available 2018 15:20:02 Paternal Uncle Carcinoma of prostate -- Diagno sed in his early 50s. Not available 06/24/2018 15:21:32 Medical History No medical history recorded. Gynecological History Statement/Question Response Date of Last Pap Smear Date of Last Mammogram 11/01/2017 Date of Last Colonoscopy 09/01/2017 Obstetrics History GPAL:G 2 P 2 0 0 0 Type Value Full Term 2 Total 2 Past Encounters Encounter ID Performer Location Encounter Start Date Encounter Closed Date Diagnosis/Indication Diagnosis SNOMED-CT Code Diagnosis ICD10 Code Diagnosis Note [id number] Noel Almeida MD [facility], [facility] [address] [place] [address] 06/24/2018 14:27:31 06/24/2018 15:58:40 Migraine 37499964 G43.909 (stress increases frequency) -- 1st diagnosed by Dr Ganesh Hou but her 1st migraine started in her 30s-- describes a dull; and pt reports she needs to be in a dark quiet enviroment .-- Averaging once a month and usually 3 days in a roll w/ left eye tearing Gastroesop hageal reflux disease without esophagitis 653156326 K21.9 -- respond to Omeprazole Body mass index 20-24 - normal 518121855 Z68.23 -- Patient is in healthy weight category with a BMI of 23( normal BMI is between 20-25). Hyperlipid emia screening 499235482 Z13.220 -- Patient reports she had a normal cholestero l panel done around December 2017. Active or passive immunization 317722236 Z23 Screening for malignant neoplasm of colon 371407936 Z12.11 -- had Colonoscop y performed by gastroente rologist Dr. Farhan Russo in the summer of 2017. Screening for malignant neoplasm of breast 167833902 Z12.31 -- Last mammogram was done around November 2017 at [place] [facility] Screening for malignant neoplasm of cervix 239481394 Z12.4 -- had Hysterecto my (no need for Pap anymore). Expiratory wheezing 9763 007 R06.2 Elevated blood-pressure reading without diagnosis of hypertension 532125969 R03.0 Health Concerns Section Related Observation LastModified by Organization Detai ls LastModified Time None Recorded Concern Status LastModified by Organization Details LastModified Time None Recorded Advance Directives Directive N: Payers Encounter Date Sequence Insurance Name Policy Number Policy Delgado Covered Member ID Delgado Member ID Guarantor Name 06/24/2018 1 [facility] [id number] Marcin Javier [id number] Marcin Javier Notes Date Note Type Note Provider Name and Address Organization Details Recorded Time 06/24/2018 text/html Patient denies any headache/chest discomfort or pain/diaphoresis/ breathing problems/nausea/v omiting/any angina equivalent symptoms/visual changes Noel Almeida MD [address] [place] [address] [address], [place], [address], [facility] - [facility] 06/24/2018 15:56:37 OBGyn Episode No OBEpisode recorded.
[2024-07-28 14:29] LABS: Anti Cyclic Citrullinated Pept <16 UNITS
== END 2024-07-26 13:49 | disposition home or self-care (01) ==
LOC: ANHLAB 13:50
PROVIDERS: PCP Family Medicine; Visit Provider Nurse Practitioner
DX: Z00.00 Encounter for general adult medical examination without abnormal findings (principal); M25.50 Pain in unspecified joint; E78.5 Hyperlipidemia, unspecified; E05.90 Thyrotoxicosis, unspecified without thyrotoxic crisis or storm
CPT/HCPCS: 36415; 80053; 80061; 84439; 85652; 86038; 86039; 86140; 86200; 86430

== ENCOUNTER 2025-03-31 13:54 | Outpatient (CLI) | payer MEDICAID, SELFPAY ==
[2025-03-31 14:55] LABS: Hematocrit 38.9 % (37.0-47.0); Hemoglobin 12.6 g/dL (12.0-15.0); Mean Corpuscular HGB Conc 32.4 g/dl (32-36); Mean Corpuscular Hemoglobin 25.9 pg (26-34); Mean Corpuscular Volume 79.9 fl (80-100); Platelet Count Result 221 k/mm3 (150-375); Red Blood Count 4.87 M/mm3 (4.2-5.4); White Blood Count 5.6 K/mm3 (4.5-10.0)
[2025-03-31 15:03] LABS: Add Urine Microscopic? YES; Appearance Urine Clear (Clear); Glucose Urine UA Negative (Negative); Leukocyte Esterase Ur Negative LEU/UL (Negative); Nitrate Urine Negative (Negative); Non Pathogenic Casts 0-2; Specific Grav Ur 1.016 (1.001-1.035)
[2025-03-31 15:14] LABS: Alanine Aminotransferase 17 U/L (6-35); Albumin Level 4.3 g/dL (3.5-5.1); Alkaline Phosphatase 69 U/L (38-126); Anion Gap 6 mmol/L (4-12); Aspartate Amino Transferase 24 U/L (14-36); Bilirubin,Total 0.4 mg/dL (0.2-1.3); Blood Urea Nitrogen 9 mg/dL (7-17); Calcium 9.1 mg/dL (8.4-10.2); Carbon Dioxide 29 mmol/L (22-30); Chloride 106 mmol/L (98-107); Estimated Glomerular Filt Rate > 60; Glucose 78 mg/dL (65-110); Potassium 3.9 mmol/L (3.4-5.0); Sodium 141 mmol/L (137-145); Total Protein 7.4 g/dL (6.3-8.2)
== END 2025-03-31 13:55 | disposition home or self-care (01) ==
LOC: ANHLAB 13:55
PROVIDERS: PCP Nurse Practitioner; Visit Provider Nurse Practitioner
DX: R42 Dizziness and giddiness (principal); R10.A0 Flank pain, unspecified side
CPT/HCPCS: 36415; 80053; 81001; 85027; 87086